=== PATIENT | female | born 1945 | race Caucasian/White ===

== ENCOUNTER 2017-05-27 09:20 | Day surgery (SDC) | payer MEDICARE ==
--- NOTE | 2017-05-27 08:25 | HP ---
DATE OF SURGERY: 05/27/2017 HISTORY OF PRESENT ILLNESS: This is a 71 year-old with last colonoscopy back in 2012 had polyps, occasional bright red blood per rectum. She has been on aspirin. No changes in bowel movements. She had constipation with stools, occasional left lower quadrant pain and epigastric pain. She had a positive Cologard test apparently. PAST MEDICAL HISTORY: Hypertension. PAST SURGICAL HISTORY: Hysterectomy, cholecystectomy. She had a pin in the foot in the past. MEDICATIONS: Prilosec, aspirin, amitriptyline, propranolol, hydrochlorothiazide. ALLERGIES: TETRACYCLINE. FAMILY HISTORY: Hypertension, heart disease, pacemaker and diabetes. SOCIAL HISTORY: No smoking or alcohol abuse. REVIEW OF SYSTEMS: Twelve systems reviewed per admission assessment. No chest pain or palpitations other systems negative or noncontributory as above and per preadmission questionnaire. PHYSICAL EXAMINATION: GENERAL: No acute distress. HEENT: Sclerae nonicteric. NECK: No JVD. CHEST: Equal excursion, nonlabored breathing. CVS: Regular rate and rhythm. ABDOMEN: Soft. No peritoneal signs. EXTREMITIES: No significant edema. NEURO: Alert, moving extremities symmetrically. No gross motor deficits noted. RECTAL: Deferred timed to endoscopy exam. IMPRESSION: History of polyps, history of occasional rectal bleeding, positive Cologard test. I feel she is a candidate for colonoscopy as she needs a follow up screening colonoscopy regardless whether she had positive Cologard testing or not. Risks and benefits explained in detail including but not limited to bleeding or infection, small risk of bowel injury or perforation possibly requiring open procedure, small risk of missed or nondiagnosis or incomplete exam possibly requiring barium enema, other studies or procedures, She understands and agrees to the planned procedure and will proceed with outpatient colonoscopy.
[2017-05-27] MEDS ORDERED: Versed 2 MG/2 ML Injection IV ONE (09:21)
[2017-05-27] MEDS ORDERED: DIPRIVAN 200 MG/20 ML IV ONE (09:21)
[2017-05-27] MEDS ORDERED: Lactated Ringers 1,000 ML IV ONE ×2 (09:45→11:27)
[2017-05-27] MEDS ORDERED: Lactated Ringers 1,000 ML IV SCH (10:00)
[2017-05-27 12:26] VITALS: BP 150/80; PULSE 18; O2SAT 98
--- NOTE | 2017-05-28 08:25 | OP ---
SURGERY DATE/TIME: 05/27/2017 1100 PREOPERATIVE DIAGNOSIS: Prior history of polyps, history of positive FIT test, history of occasional rectal bleeding. POSTOPERATIVE DIAGNOSES: 1) Poor prep right colon. 2) Mild diverticulosis. 3) Small internal and external hemorrhoids. 4) Mild inflammation or proctitis rectum, path pending. 5) Small raised lesion versus hyperplastic lesion, rectum. 6) Tortuous colon. PROCEDURES: 1) Colonoscopy to cecum with cold biopsy of slightly prominent ileocecal valve. 2) Cold biopsy inflammation, rectum. 3) Hot biopsy small raised lesion versus early hyperplastic lesions, rectum. SURGEON: Dr. Feroz Francis. ANESTHESIA: MAC. ESTIMATED BLOOD LOSS: Minimal. INDICATIONS: As noted above. Risks and benefits explained in detail but not limited to and consent obtained. DESCRIPTION OF PROCEDURE AND FINDINGS: The patient is taken to the endoscopy room. MAC anesthesia introduced. After official time out and no disagreement with planned procedure, digital rectal exam did not reveal any rectal masses. She did have some small internal and external hemorrhoids. Video colonoscope inserted and passed up the tortuous sigmoid, descending, transverse colon, ascending colon requiring positioning on her back and external pressure. The scope was able to reach the valve area right at the cecum. The overall poor prep limited the exam. There were no signs of any obvious large lesions but the semi-solid and liquidy stool did limit the exam. The ileocecal valve was felt to be slightly prominent. Cold biopsy taken for completeness to rule out other etiology other than normal variation of prominent ileocecal valve to rule out any other etiology other than normal variation of the prominent ileocecal valve. Good hemostasis noted. The scope is slowly and carefully withdrawn with no signs of any large polyps, masses or obstructing lesions. She did have some diverticulosis. Again the prep was poor in the right colon with semi-solid and liquidy stool limiting the exam. 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 Otherwise the scope pulled back to the rectum. She did have some area of inflammation in the rectum. Cold biopsy taken for further evaluation. Otherwise there were no signs of any ulcers or masses. She had some small raised lesions whether these are simple hyperplastic lesions or hyperplastic polyps were removed with hot biopsy forceps. Good hemostasis noted. Otherwise she had some small internal and external hemorrhoids. No signs of any large polyps, masses or obstructing lesions. Whether the combination of hemorrhoids and inflammation in the rectum had caused her Cologuard test to be positive or not is unclear as there did not appear to be any other obvious large polyps, masses or any other large lesions in the colon to account for it. Findings discussed with the family out in the waiting area.
== END 2017-05-27 12:37 | disposition home or self-care (01) ==
LOC: SDC 09:20
PROVIDERS: ATTEND Surgery
PROC: 0DBC8ZX Excision of Ileocecal Valve, Via Natural or Artificial Opening Endoscopic, Diagnostic (ICD-10-PCS; principal; 2017-05-27)
PROC: 0DBP8ZX Excision of Rectum, Via Natural or Artificial Opening Endoscopic, Diagnostic (ICD-10-PCS; 2017-05-27)
PROC: 0DBP8ZX Excision of Rectum, Via Natural or Artificial Opening Endoscopic, Diagnostic (ICD-10-PCS; 2017-05-27)
DX: K57.90 Diverticulosis of intestine, part unspecified, without perforation or abscess without bleeding (principal); Z86.010 Personal history of colon polyps; K62.5 Hemorrhage of anus and rectum; K64.4 Residual hemorrhoidal skin tags; K62.89 Other specified diseases of anus and rectum; K64.8 Other hemorrhoids; R19.5 Other fecal abnormalities; I10 Essential (primary) hypertension; Z79.899 Other long term (current) drug therapy
CPT/HCPCS: 00810; 36415; J2250; J2704